=== PATIENT | male | born 1995 | race Caucasian/White ===

== ENCOUNTER 2020-01-25 03:04 | Emergency (ER) | payer SELFPAY ==
[2020-01-25 03:10] VITALS: BP 111/77; PULSE 127; RESP 18; TEMP 36.8; O2SAT 98; BMI 22.6
[2020-01-25 05:41] VITALS: BP 110/77; PULSE 86; RESP 16; O2SAT 97
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
== END 2020-01-25 05:44 | disposition home or self-care (01) ==
PROVIDERS: Emergency Provider Emergency Medicine
DX: S01.412A Laceration without foreign body of left cheek and temporomandibular area, initial encounter (principal); S00.83XA Contusion of other part of head, initial encounter; W20.8XXA Other cause of strike by thrown, projected or falling object, initial encounter
CPT/HCPCS: 12011; 12345; 99281; 99282

== ENCOUNTER → 2020-03-04 11:12 | Outpatient (BNVA) | payer OTHER, SELFPAY | PROVIDERS: Visit Provider Nurse Practitioner Family | DX: R50.9 Fever, unspecified (principal); R51 Headache; Z11.59 Encounter for screening for other viral diseases | CPT/HCPCS: 87635 ==

== ENCOUNTER → 2021-07-13 16:22 | Outpatient (BNVA) | payer OTHER, SELFPAY | PROVIDERS: Visit Provider Nurse Practitioner Family | DX: Z20.822 Contact with and (suspected) exposure to COVID-19 (principal) | CPT/HCPCS: 87635 ==

== ENCOUNTER 2025-03-29 14:45 | Emergency (ER) | payer SELFPAY ==
[2025-03-29 15:01] VITALS: BP 124/75; PULSE 76; RESP 18; TEMP 36.9; O2SAT 100; BMI 28.2
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
== END 2025-03-29 15:09 | disposition home or self-care (01) ==
PROVIDERS: Emergency Provider Emergency Medicine
DX: T63.461A Toxic effect of venom of wasps, accidental (unintentional), initial encounter (principal); X58.XXXA Exposure to other specified factors, initial encounter; F17.290 Nicotine dependence, other tobacco product, uncomplicated
CPT/HCPCS: 96372; 99284; J1100; Q0163